=== PATIENT | male | born 1980 | race Two or more races ===

== ENCOUNTER 2023-07-30 22:45 | Emergency (ER) | payer SELFPAY ==
[~2023-07-30] VITALS: Ht 167.6 cm; Wt 75.0 kg
[2023-07-31] MEDS: ACETAMINOPHEN 325 MG TAB PO ONE (02:39)
[2023-07-31] MEDS ORDERED: IBUP-1456 PO (03:52)
[2023-07-31] MEDS ORDERED: CYCL-837 PO (03:52)
[2023-07-31 04:42] VITALS: BP 102/71; PULSE 66; RESP 18; TEMP 98.6; O2SAT 98
== END 2023-07-31 04:47 | disposition home or self-care (01) ==
LOC: ER 22:45 → EDBD 22:45 → ER 07-31 04:47
DX: S46.812A Strain of other muscles, fascia and tendons at shoulder and upper arm level, left arm, initial encounter (principal); S20.212A Contusion of left front wall of thorax, initial encounter; S09.8XXA Other specified injuries of head, initial encounter; R51.9 Headache, unspecified; E10.9 Type 1 diabetes mellitus without complications; Z79.899 Other long term (current) drug therapy; V53.5XXA Driver of pick-up truck or van injured in collision with car, pick-up truck or van in traffic accident, initial encounter; Y93.I9 Activity, other involving external motion; Y92.89 Other specified places as the place of occurrence of the external cause; Y99.8 Other external cause status
CPT/HCPCS: 70450; 71045